=== PATIENT | male | born 1960 | race African-American/Black ===

== ENCOUNTER 2023-09-04 18:29 | Inpatient (IN) | payer MEDICARE, MEDICAID ==
[~2023-09-04] VITALS: Ht 167.6 cm; Wt 56.4 kg
[~2023-09-04 18:29] MED LIST: ASPI-1497 PO; ATOR10TA69 PO; LINA1TAB5 PO; LISI10TA26 PO; NEBI5TAB2 PO; RANI150T7 PO; prevacid
[2023-09-04 19:59] LABS: BASOPHILS % 0.8 % (0.0-2.0); EOSINOPHILS % 0.9 % (0.0-5.0); HEMATOCRIT. 39.8 % (42.0-52.0); HEMOGLOBIN. 13.2 g/dL (14.0-18.0); LYMPHOCYTES % 18.8 % (20.0-50.0); MEAN CORPUSCULAR HEMOGLOBIN 29.7 pg (28.0-32.0); MEAN CORPUSCULAR HGB CONC 33.1 g/dL (31.0-37.0); MEAN CORPUSCULAR VOLUME 89.7 fL (80.0-94.0); MEAN PLATELET VOLUME 8.9 fl (7.4-10.4); MONOCYTES % 10.2 % (2.0-8.0); NEUTROPHILS % 69.3 % (40.0-76.0); PLATELET 322 x1000/uL (130-400); RED BLOOD CELL COUNT 4.43 mill/uL (4.7-6.1); RED CELL DISTRIBUTION WIDTH 13.8 % (11.6-14.6); WHITE BLOOD COUNT 6.7 x1000/uL (4.5-11.0)
[2023-09-04 20:05] LABS: CHLORIDE 108 mEq/L (98-107); POTASSIUM 3.2 mEq/L (3.5-5.1); SODIUM 146 mEq/L (136-145)
[2023-09-04 20:06] LABS: CALCIUM 9.7 mg/dL (8.7-10.4); CARBON DIOXIDE 27 mEq/L (21-32)
[2023-09-04 20:10] LABS: INR 1.1; PARTIAL THROMBOPLASTIN TIME 24.5 sec (23.4-31.0); PROTHROMBIN TIME 11.7 sec (9.6-11.0)
[2023-09-04 20:11] LABS: CREATININE 0.9 mg/dL (0.6-1.3); GLUCOSE 106 mg/dL (70-105); UREA NITROGEN BLOOD 16 mg/dL (9-23)
[2023-09-04 20:13] LABS: ALANINE AMINOTRANSFERASE 11 IU/L (10-49); ALBUMIN 4.5 g/dL (3.2-4.8); ASPARTATE AMINOTRANSFERASE 22 IU/L (<34); BILIRUBIN TOTAL 0.6 mg/dL (0.1-1.0)
[2023-09-04 20:14] LABS: PROTEIN TOTAL 7.3 g/dL (6.0-8.3)
[2023-09-04 20:31] LABS: TROPONIN I HIGH SENSITIVITY 978 ng/L (3.0-53)
[2023-09-04] MEDS ORDERED: ASPIRIN 325MG EC TABLET PO ONE (21:15)
[2023-09-04] MEDS ORDERED: ACETAMINOPHEN 325MG TABLET PO PRN (21:45)
[2023-09-04] MEDS ORDERED: DEXT 5%/0.45% NACL 1000ML 1,000 ML IV SCH (21:45)
[2023-09-04] MEDS ORDERED: IPRATROPIUM/ALBUTEROL 0.5-3(2.5)MG/3ML NEB HHN PRN (21:45)
[2023-09-04] MEDS ORDERED: DOCUSATE SODIUM 100MG CAPSULE PO PRN (21:45)
[2023-09-04] MEDS: IOHEXOL-350 100 ML BOTTLE ONE (22:23)
[2023-09-04] MEDS ORDERED: POTASSIUM CHLORIDE 20MEQ TABLET SR PO NR (22:30)
[2023-09-04] MEDS ORDERED: DEXTROSE 50% WATER 50ML SYRINGE IV PRN (22:45)
[2023-09-04 23:30] VITALS: BP 174/85; PULSE 59; RESP 20; TEMP 99
[2023-09-05 00:34] LABS: TRIGLYCERIDE 80 mg/dL (0-150)
[2023-09-05 00:35] LABS: LDL CHOLESTEROL 122 mg/dL (5-100)
[2023-09-05 00:36] LABS: ALBUMIN 4.5 g/dL (3.2-4.8); CHOLESTEROL 171 mg/dL (<200); HDL CHOLESTEROL 37 mg/dL (>55); PHOSPHORUS 3.5 mg/dL (2.5-4.9)
[2023-09-05 00:37] LABS: CREATINE KINASE MB FRACTION 3.1 ng/mL (0.5-3.6)
[2023-09-05 00:41] LABS: T4 FREE 0.99 ng/dL (0.89-1.76); THYROID STIMULATING HORMONE 0.53 uIU/mL (0.55-4.78)
[2023-09-05 00:56] LABS: TROPONIN I HIGH SENSITIVITY 883 ng/L (3.0-53)
[2023-09-05] MEDS: KCL 20MEQ/100ML PREMIX 100 ML IV NR (01:01)
[2023-09-05] MEDS: ASPIRIN 300MG SUPP PR NR (01:02)
[2023-09-05] MEDS: DEXT 5%/LACTATED RINGERS 1,000 ML IV SCH (01:05)
[2023-09-05 05:32] LABS: HEMATOCRIT 40.5 % (42.0-52.0); HEMOGLOBIN 13.4 g/dL (14.0-18.0); MEAN CORPUSCULAR HEMOGLOBIN 29.8 pg (28.0-32.0); MEAN CORPUSCULAR HGB CONC 33.1 g/dL (31.0-37.0); MEAN CORPUSCULAR VOLUME 90.1 fL (80.0-94.0); PLATELET 299 x1000/uL (130-400); RED BLOOD CELL COUNT 4.49 mill/uL (4.7-6.1); RED CELL DISTRIBUTION WIDTH 14.1 % (11.6-14.6); WHITE BLOOD COUNT 6.7 x1000/uL (4.5-11.0)
[2023-09-05 05:57] LABS: CREATINE KINASE MB FRACTION 2.8 ng/mL (0.5-3.6)
[2023-09-05] MEDS: BLOOD SUGAR DIAGNOSTIC STRIP TEST SCH (07:13)
[2023-09-05] MEDS: INSULIN LISPRO 100 UNITS/ML SUBCUT SCH (07:15)
[2023-09-05] MEDS ORDERED: HYDRALAZINE HCL 25MG TABLET PO PRN (08:45)
[2023-09-05] MEDS: ASPIRIN 81MG TABLET PO SCH (10:52)
[2023-09-05] MEDS: CLOPIDOGREL 75MG TABLET PO SCH (10:52)
[2023-09-05 13:47] VITALS: BP 181/94; PULSE 49; RESP 18; TEMP 97.9
[2023-09-05 16:00] VITALS: BP 188/91; PULSE 48; RESP 18; TEMP 97.9
[2023-09-05] MEDS: HYDRALAZINE 20MG/ML VIAL IV PRN (16:11)
[2023-09-05 17:35] VITALS: BP 151/84; PULSE 64
[2023-09-05 19:56] LABS: CALCIUM 9.7 mg/dL (8.7-10.4); CARBON DIOXIDE 24 mEq/L (21-32)
[2023-09-05 20:01] LABS: CREATININE 0.8 mg/dL (0.6-1.3); GLUCOSE 139 mg/dL (70-105); UREA NITROGEN BLOOD 9 mg/dL (9-23)
[2023-09-05 20:25] VITALS: BP 130/69; PULSE 60; RESP 18; TEMP 97.5
[2023-09-05 20:43] LABS: CHLORIDE 112 mEq/L (98-107); SODIUM 145 mEq/L (136-145)
[2023-09-05 20:46] LABS: POTASSIUM 5.2 mEq/L (3.5-5.1)
[2023-09-05] MEDS: ATORVASTATIN CALCIUM 40MG TABLET PO SCH (21:00)
[2023-09-05] MEDS ORDERED: ATORVASTATIN CALCIUM 40MG TABLET PO SCH (21:00)
[2023-09-06 04:00] VITALS: BP 169/87; PULSE 48; RESP 18; TEMP 97.1
[2023-09-06 06:14] LABS: CHLORIDE 109 mEq/L (98-107); SODIUM 147 mEq/L (136-145)
[2023-09-06 06:15] LABS: CARBON DIOXIDE 28 mEq/L (21-32)
[2023-09-06 06:16] LABS: CALCIUM 9.3 mg/dL (8.7-10.4)
[2023-09-06 06:20] LABS: CREATININE 0.7 mg/dL (0.6-1.3); GLUCOSE 140 mg/dL (70-105); TRIGLYCERIDE 65 mg/dL (0-150); UREA NITROGEN BLOOD 10 mg/dL (9-23)
[2023-09-06 06:21] LABS: LDL CHOLESTEROL 103 mg/dL (5-100)
[2023-09-06 06:22] LABS: CHOLESTEROL 150 mg/dL (<200); HDL CHOLESTEROL 31 mg/dL (>55)
[2023-09-06 06:29] LABS: POTASSIUM 3.1 mEq/L (3.5-5.1)
[2023-09-06 08:00] VITALS: BP 130/86; PULSE 58; RESP 20; TEMP 98.4
[2023-09-06] MEDS: KCL 20MEQ/100ML PREMIX 100 ML IV SCH (08:27)
[2023-09-06 12:12] VITALS: BP 95/43; PULSE 55; RESP 18; TEMP 98
[2023-09-06 12:17] VITALS: BP 166/94; PULSE 55; RESP 18; TEMP 98
[2023-09-06 16:20] VITALS: BP 158/78; PULSE 59; RESP 20; TEMP 97.7
[2023-09-06 16:39] LABS: CLARITY URINE CLEAR (CLEAR); COLOR URINE DARK YELLOW (YELLOW); GLUCOSE URINE TRACE (NEGATIVE); KETONES URINE 2+ (NEGATIVE); LEUKOCYTE ESTERASE URINE NEGATIVE (NEGATIVE); NITRITE URINE NEGATIVE (NEGATIVE); OCCULT BLOOD URINE NEGATIVE (NEGATIVE); PH URINE 5.5 (4.5-8.0); PROTEIN URINE TRACE (NEGATIVE); SPECIFIC GRAVITY URINE 1.048 (1.005-1.030)
[2023-09-06 16:50] LABS: BACTERIA URINE NONE SEEN; RBC URINE 0-2 /hpf (0-2); SQUAMOUS EPITHELIAL CELL URINE RARE /lpf (RARE/1+); WBC URINE NONE SEEN /hpf (0-2)
[2023-09-06 16:52] LABS: *AMPHETAMINES SCREEN URINE NEGATIVE (NEGATIVE); *BARBITURATES SCREEN URINE NEGATIVE (NEGATIVE); *BENZODIAZEPINES SCREEN URINE NEGATIVE (NEGATIVE); *COCAINE SCREEN URINE NEGATIVE (NEGATIVE); CANNABINOID URINE SCREEN NEGATIVE (NEGATIVE); METHADONE URINE SCREEN NEGATIVE (NEGATIVE); OPIATES URINE SCREEN NEGATIVE (NEGATIVE); PHENCYCLIDINE URINE SCREEN NEGATIVE (NEGATIVE)
[2023-09-06 16:53] LABS: ECSTASY MDMA SCREEN URINE NEGATIVE (NEGATIVE)
[2023-09-06 17:50] LABS: CREATINE KINASE MB FRACTION 1.5 ng/mL (0.5-3.6)
[2023-09-06 20:00] VITALS: BP 172/104; PULSE 69; RESP 20; TEMP 97.6
[2023-09-06 23:04] LABS: CREATINE KINASE MB FRACTION 1.1 ng/mL (0.5-3.6)
[2023-09-07] VITALS: BP 160/79; PULSE 68; RESP 20; TEMP 97.7
[2023-09-07 04:00] VITALS: BP 158/88; PULSE 64; RESP 20; TEMP 97.6
[2023-09-07 07:31] LABS: CHLORIDE 107 mEq/L (98-107); POTASSIUM 3.7 mEq/L (3.5-5.1); SODIUM 143 mEq/L (136-145)
[2023-09-07 07:32] LABS: CALCIUM 9.6 mg/dL (8.7-10.4); CARBON DIOXIDE 26 mEq/L (21-32)
[2023-09-07 07:34] LABS: BASOPHILS % 0.4 % (0.0-2.0); EOSINOPHILS % 4.2 % (0.0-5.0); HEMATOCRIT. 40.9 % (42.0-52.0); HEMOGLOBIN. 13.3 g/dL (14.0-18.0); LYMPHOCYTES % 25.1 % (20.0-50.0); MEAN CORPUSCULAR HEMOGLOBIN 29.4 pg (28.0-32.0); MEAN CORPUSCULAR HGB CONC 32.6 g/dL (31.0-37.0); MEAN CORPUSCULAR VOLUME 90.3 fL (80.0-94.0); MEAN PLATELET VOLUME 9.6 fl (7.4-10.4); NEUTROPHILS % 60.3 % (40.0-76.0); PLATELET 299 x1000/uL (130-400); RED BLOOD CELL COUNT 4.53 mill/uL (4.7-6.1); RED CELL DISTRIBUTION WIDTH 13.9 % (11.6-14.6); WHITE BLOOD COUNT 5.7 x1000/uL (4.5-11.0)
[2023-09-07 07:37] LABS: CREATININE 0.7 mg/dL (0.6-1.3); GLUCOSE 128 mg/dL (70-105); UREA NITROGEN BLOOD 8 mg/dL (9-23)
[2023-09-07 07:39] LABS: CREATINE KINASE 169 IU/L (46-171)
[2023-09-07 07:58] LABS: TROPONIN I HIGH SENSITIVITY 852 ng/L (3.0-53)
[2023-09-07 08:00] VITALS: BP 157/82; PULSE 71; RESP 20; TEMP 98.2
[2023-09-07] MEDS: LISINOPRIL 10MG TABLET PO SCH (10:00)
[2023-09-07 12:00] VITALS: BP 152/82; PULSE 61; RESP 20; TEMP 97.6
[2023-09-07 16:00] VITALS: BP 150/78; PULSE 68; RESP 20; TEMP 97.8
[2023-09-07 20:00] VITALS: BP 182/93; PULSE 60; RESP 19; TEMP 97.9
[2023-09-08] VITALS (7 sets, daily range): BP systolic 135–184; BP diastolic 88–107; PULSE 78–96; RESP 18–20; TEMP 97.4–98.9
[2023-09-08 07:12] LABS: HEMATOCRIT 39.8 % (42.0-52.0); HEMOGLOBIN 12.8 g/dL (14.0-18.0); MEAN CORPUSCULAR HEMOGLOBIN 29.7 pg (28.0-32.0); MEAN CORPUSCULAR HGB CONC 32.2 g/dL (31.0-37.0); MEAN CORPUSCULAR VOLUME 92.3 fL (80.0-94.0); PLATELET 243 x1000/uL (130-400); RED BLOOD CELL COUNT 4.32 mill/uL (4.7-6.1); RED CELL DISTRIBUTION WIDTH 14.4 % (11.6-14.6); WHITE BLOOD COUNT 9.7 x1000/uL (4.5-11.0)
[2023-09-08 11:00] LABS: CALCIUM 9.9 mg/dL (8.7-10.4); CHLORIDE 106 mEq/L (98-107); POTASSIUM 3.3 mEq/L (3.5-5.1); SODIUM 143 mEq/L (136-145)
[2023-09-08 11:01] LABS: CARBON DIOXIDE 27 mEq/L (21-32)
[2023-09-08 11:06] LABS: CREATININE 0.6 mg/dL (0.6-1.3); GLUCOSE 182 mg/dL (70-105)
[2023-09-08 11:07] LABS: UREA NITROGEN BLOOD 7 mg/dL (9-23)
[2023-09-08] MEDS ORDERED: POTASSIUM CHLORIDE 20 MEQ in DEXT 5% WATER 90 ML IV ONE (12:15)
[2023-09-08] MEDS: KCL 20MEQ/100ML PREMIX 100 ML IV NR (14:33)
[2023-09-09] VITALS (7 sets, daily range): BP systolic 106–152; BP diastolic 53–97; PULSE 77–88; RESP 2–20; TEMP 97.9–99.2
[2023-09-09 07:43] LABS: HEMATOCRIT 39.1 % (42.0-52.0); HEMOGLOBIN 12.8 g/dL (14.0-18.0); MEAN CORPUSCULAR HEMOGLOBIN 29.3 pg (28.0-32.0); MEAN CORPUSCULAR HGB CONC 32.7 g/dL (31.0-37.0); MEAN CORPUSCULAR VOLUME 89.8 fL (80.0-94.0); PLATELET 251 x1000/uL (130-400); RED BLOOD CELL COUNT 4.35 mill/uL (4.7-6.1); RED CELL DISTRIBUTION WIDTH 14.1 % (11.6-14.6); WHITE BLOOD COUNT 10.7 x1000/uL (4.5-11.0)
[2023-09-09 07:52] LABS: CARBON DIOXIDE 31 mEq/L (21-32); CHLORIDE 107 mEq/L (98-107); POTASSIUM 3.3 mEq/L (3.5-5.1); SODIUM 142 mEq/L (136-145)
[2023-09-09 07:53] LABS: CALCIUM 9.7 mg/dL (8.7-10.4)
[2023-09-09 07:57] LABS: CREATININE 0.8 mg/dL (0.6-1.3); GLUCOSE 210 mg/dL (70-105)
[2023-09-09 07:58] LABS: UREA NITROGEN BLOOD 9 mg/dL (9-23)
[2023-09-09 08:00] LABS: PHOSPHORUS 2.5 mg/dL (2.5-4.9)
[2023-09-09] MEDS: KCL 20MEQ/100ML PREMIX 100 ML IV SCH (09:43)
[2023-09-09] MEDS ORDERED: POTASSIUM CHLORIDE 20MEQ TABLET SR PO NR (15:00)
[2023-09-09] MEDS: ONDANSETRON HCL 4MG/2ML INJ IV PRN (18:29)
[2023-09-10 04:00] VITALS: BP 155/80; PULSE 83; RESP 20; TEMP 97.8
[2023-09-10 07:52] LABS: CARBON DIOXIDE 29 mEq/L (21-32); CHLORIDE 105 mEq/L (98-107); POTASSIUM 3.5 mEq/L (3.5-5.1); SODIUM 140 mEq/L (136-145)
[2023-09-10 07:53] LABS: CALCIUM 9.4 mg/dL (8.7-10.4)
[2023-09-10 07:58] LABS: CREATININE 0.7 mg/dL (0.6-1.3); GLUCOSE 205 mg/dL (70-105); UREA NITROGEN BLOOD 11 mg/dL (9-23)
[2023-09-10 08:00] VITALS: BP 150/77; PULSE 73; RESP 18; TEMP 98.6
[2023-09-10] MEDS: ASPIRIN 81MG TABLET NG SCH (09:31)
[2023-09-10 12:00] VITALS: BP 141/82; PULSE 72; RESP 18; TEMP 97.8
[2023-09-10 16:00] VITALS: BP 150/89; PULSE 73; RESP 18; TEMP 98.8
[2023-09-10 20:00] VITALS: BP 160/94; PULSE 79; RESP 20; TEMP 97.7
[2023-09-10] MEDS: LORAZEPAM 2MG/ML INJ IV NR (23:30)
[2023-09-11] VITALS: BP 158/93; PULSE 75; RESP 20; TEMP 98
[2023-09-11 04:00] VITALS: BP 141/90; PULSE 89; RESP 20; TEMP 98
[2023-09-11 08:00] VITALS: BP 136/90; PULSE 75; RESP 18; TEMP 98.5
[2023-09-11] MEDS: LISINOPRIL 20MG TABLET PO SCH (09:17)
[2023-09-11] MEDS: SODIUM CHLORIDE 0.45% 1,000 ML IV SCH (10:13)
[2023-09-11 12:00] VITALS: BP 127/78; PULSE 80; RESP 18; TEMP 98.7
[2023-09-11 16:00] VITALS: BP 145/65; PULSE 59; RESP 18; TEMP 97.9
[2023-09-11 20:00] VITALS: BP 173/97; PULSE 72; RESP 16; TEMP 97.8
[2023-09-12] VITALS (7 sets, daily range): BP systolic 112–199; BP diastolic 67–120; PULSE 20–76; RESP 18–20; TEMP 97.8–98.4
[2023-09-12] MEDS: INSULIN LISPRO 100 UNITS/ML SUBCUT SCH (00:06)
[2023-09-12 09:22] LABS: CALCIUM 8.9 mg/dL (8.7-10.4); CARBON DIOXIDE 30 mEq/L (21-32); CHLORIDE 100 mEq/L (98-107); POTASSIUM 3.6 mEq/L (3.5-5.1); SODIUM 137 mEq/L (136-145)
[2023-09-12 09:26] LABS: CREATININE 0.6 mg/dL (0.6-1.3); GLUCOSE 256 mg/dL (70-105)
[2023-09-12 09:28] LABS: UREA NITROGEN BLOOD 10 mg/dL (9-23)
[2023-09-12 09:37] LABS: BASOPHILS % 0.6 % (0.0-2.0); DIFFERENTIAL COMMENT 0; HEMATOCRIT. 35.1 % (42.0-52.0); HEMOGLOBIN. 11.5 g/dL (14.0-18.0); LYMPHOCYTES % 22.2 % (20.0-50.0); MEAN CORPUSCULAR HEMOGLOBIN 29.5 pg (28.0-32.0); MEAN CORPUSCULAR HGB CONC 32.8 g/dL (31.0-37.0); MEAN CORPUSCULAR VOLUME 89.8 fL (80.0-94.0); MEAN PLATELET VOLUME 9.5 fl (7.4-10.4); MONOCYTES % 11.6 % (2.0-8.0); NEUTROPHILS % 61.6 % (40.0-76.0); PLATELET 261 x1000/uL (130-400); RED BLOOD CELL COUNT 3.91 mill/uL (4.7-6.1); RED CELL DISTRIBUTION WIDTH 13.7 % (11.6-14.6); WHITE BLOOD COUNT 5.3 x1000/uL (4.5-11.0)
[2023-09-12] MEDS: HYDRALAZINE HCL 10MG TABLET PO SCH (20:55)
[2023-09-13] VITALS: BP 130/78; PULSE 68; RESP 18; TEMP 97.8
[2023-09-13 04:00] VITALS: BP 153/80; PULSE 65; RESP 18; TEMP 97.2
[2023-09-13 08:00] VITALS: BP 135/91; PULSE 57; RESP 18; TEMP 98
[2023-09-13 08:05] LABS: CARBON DIOXIDE 29 mEq/L (21-32); CHLORIDE 101 mEq/L (98-107); POTASSIUM 3.6 mEq/L (3.5-5.1); SODIUM 137 mEq/L (136-145)
[2023-09-13 08:06] LABS: CALCIUM 9.3 mg/dL (8.7-10.4)
[2023-09-13 08:11] LABS: CREATININE 0.6 mg/dL (0.6-1.3); GLUCOSE 258 mg/dL (70-105); UREA NITROGEN BLOOD 9 mg/dL (9-23)
[2023-09-13 08:19] LABS: BASOPHILS % 0.8 % (0.0-2.0); EOSINOPHILS % 3.7 % (0.0-5.0); HEMATOCRIT. 35.7 % (42.0-52.0); HEMOGLOBIN. 11.9 g/dL (14.0-18.0); LYMPHOCYTES % 22.5 % (20.0-50.0); MEAN CORPUSCULAR HEMOGLOBIN 29.6 pg (28.0-32.0); MEAN CORPUSCULAR HGB CONC 33.3 g/dL (31.0-37.0); MEAN CORPUSCULAR VOLUME 88.9 fL (80.0-94.0); MEAN PLATELET VOLUME 9.4 fl (7.4-10.4); MONOCYTES % 10.7 % (2.0-8.0); NEUTROPHILS % 62.3 % (40.0-76.0); PLATELET 289 x1000/uL (130-400); RED BLOOD CELL COUNT 4.02 mill/uL (4.7-6.1); RED CELL DISTRIBUTION WIDTH 13.8 % (11.6-14.6); WHITE BLOOD COUNT 5.9 x1000/uL (4.5-11.0)
[2023-09-13] MEDS: LISINOPRIL 40MG TABLET PO SCH (09:11)
[2023-09-13 12:00] VITALS: BP 143/91; PULSE 58; RESP 18; TEMP 98.3
[2023-09-13 16:00] VITALS: BP 165/86; PULSE 66; RESP 17; TEMP 98
[2023-09-13 20:00] VITALS: BP 167/96; PULSE 70; RESP 20; TEMP 98
[2023-09-14] VITALS: BP 148/87; PULSE 67; RESP 20; TEMP 98
[2023-09-14 03:27] LABS: BASOPHILS % 0.8 % (0.0-2.0); EOSINOPHILS % 3.9 % (0.0-5.0); HEMATOCRIT. 35.4 % (42.0-52.0); HEMOGLOBIN. 11.7 g/dL (14.0-18.0); LYMPHOCYTES % 25.8 % (20.0-50.0); MEAN CORPUSCULAR HEMOGLOBIN 29.3 pg (28.0-32.0); MEAN CORPUSCULAR VOLUME 88.8 fL (80.0-94.0); MEAN PLATELET VOLUME 8.9 fl (7.4-10.4); MONOCYTES % 10.9 % (2.0-8.0); NEUTROPHILS % 58.6 % (40.0-76.0); PLATELET 303 x1000/uL (130-400); RED BLOOD CELL COUNT 3.99 mill/uL (4.7-6.1); RED CELL DISTRIBUTION WIDTH 13.7 % (11.6-14.6); WHITE BLOOD COUNT 6.3 x1000/uL (4.5-11.0)
[2023-09-14 03:36] LABS: CHLORIDE 104 mEq/L (98-107); POTASSIUM 3.4 mEq/L (3.5-5.1); SODIUM 139 mEq/L (136-145)
[2023-09-14 03:37] LABS: CARBON DIOXIDE 30 mEq/L (21-32)
[2023-09-14 03:42] LABS: CREATININE 0.6 mg/dL (0.6-1.3); UREA NITROGEN BLOOD 9 mg/dL (9-23)
[2023-09-14 03:44] LABS: ALANINE AMINOTRANSFERASE 9 IU/L (10-49); ALBUMIN 3.7 g/dL (3.2-4.8); ASPARTATE AMINOTRANSFERASE 15 IU/L (<34)
[2023-09-14 03:45] LABS: BILIRUBIN TOTAL 0.3 mg/dL (0.1-1.0); PROTEIN TOTAL 5.8 g/dL (6.0-8.3)
[2023-09-14 03:49] LABS: GLUCOSE 107 mg/dL (70-105)
[2023-09-14 04:00] VITALS: BP 122/65; PULSE 60; RESP 18; TEMP 97.5
[2023-09-14 04:05] LABS: PROTHROMBIN TIME 11.6 sec (9.6-11.0)
[2023-09-14 08:00] VITALS: BP 145/87; PULSE 69; RESP 20; TEMP 97.6
[2023-09-14] MEDS: KCL 20MEQ/100ML PREMIX 100 ML IV NR (09:13)
[2023-09-14] MEDS ORDERED: VANCOMYCIN 1000MG/250ML 250 ML IV SCH (11:00)
[2023-09-14 12:21] VITALS: BP 156/94; PULSE 68; RESP 20; TEMP 98.9
[2023-09-14] MEDS ORDERED: PROPOFOL 200MG/20ML VIAL IV ONE (12:57)
[2023-09-14] MEDS ORDERED: LIDOCAINE HCL 1% 10 MG/ML 10ML VIAL ONE (12:59)
[2023-09-14] MEDS: VANCOMYCIN 1G PREMIX 200 ML IV SCH (15:32)
[2023-09-14 16:00] VITALS: BP 156/88; PULSE 86; RESP 20; TEMP 99.7
[2023-09-14] MEDS: SUCRALFATE 1G TABLET GT SCH (17:36)
[2023-09-14 17:39] LABS: IRON 40 ug/dL (65-175)
[2023-09-14 17:42] LABS: TOTAL IRON BINDING CAPACITY 353 ug/dl (250-425)
[2023-09-14 17:46] LABS: FERRITIN 54 ng/mL (22-322); FOLIC ACID (FOLATE) SERUM > 20.00 ng/mL (>5.38)
[2023-09-14 17:47] LABS: VITAMIN B12 SERUM 411 pg/mL (211-911)
[2023-09-14 20:00] VITALS: BP 142/97; PULSE 84; RESP 20; TEMP 98.2
[2023-09-14] MEDS: KETOROLAC 15MG/ML VIAL IV PRN (21:08)
[2023-09-15] VITALS: BP 122/77; PULSE 73; RESP 18; TEMP 97.6
[2023-09-15 04:00] VITALS: BP 145/83; PULSE 75; RESP 20; TEMP 98.2
[2023-09-15 05:56] LABS: CHLORIDE 104 mEq/L (98-107); POTASSIUM 3.6 mEq/L (3.5-5.1); SODIUM 137 mEq/L (136-145)
[2023-09-15 05:57] LABS: CARBON DIOXIDE 27 mEq/L (21-32)
[2023-09-15 05:58] LABS: CALCIUM 8.7 mg/dL (8.7-10.4)
[2023-09-15 06:02] LABS: CREATININE 0.7 mg/dL (0.6-1.3); GLUCOSE 153 mg/dL (70-105); UREA NITROGEN BLOOD 10 mg/dL (9-23)
[2023-09-15 06:24] LABS: BASOPHILS % 0.6 % (0.0-2.0); EOSINOPHILS % 1.3 % (0.0-5.0); HEMATOCRIT. 33.6 % (42.0-52.0); HEMOGLOBIN. 11.1 g/dL (14.0-18.0); LYMPHOCYTES % 14.2 % (20.0-50.0); MEAN CORPUSCULAR HEMOGLOBIN 29.5 pg (28.0-32.0); MEAN CORPUSCULAR HGB CONC 33.1 g/dL (31.0-37.0); MEAN CORPUSCULAR VOLUME 89.2 fL (80.0-94.0); MONOCYTES % 10.3 % (2.0-8.0); NEUTROPHILS % 73.6 % (40.0-76.0); PLATELET 334 x1000/uL (130-400); RED BLOOD CELL COUNT 3.76 mill/uL (4.7-6.1); RED CELL DISTRIBUTION WIDTH 13.7 % (11.6-14.6); WHITE BLOOD COUNT 9.9 x1000/uL (4.5-11.0)
[2023-09-15 08:00] VITALS: BP 142/74; PULSE 80; RESP 18; TEMP 98.7
[2023-09-15] MEDS: METOCLOPRAMIDE HCL 10MG/2ML VIAL IV SCH (11:40)
[2023-09-15 12:23] VITALS: BP 145/74; PULSE 86; RESP 18; TEMP 96.6
[2023-09-15] MEDS: FERROUS SULFATE 300MG/5ML UDC PEG SCH (12:36)
[2023-09-15 16:00] VITALS: BP 128/82; PULSE 78; RESP 18; TEMP 97.8
[2023-09-15 20:00] VITALS: BP 146/92; PULSE 86; RESP 19; TEMP 99.5
[2023-09-15] MEDS: LANSOPRAZOLE 30MG DR CAPSULE GT SCH (20:55)
[2023-09-16 00:17] VITALS: BP 138/85; PULSE 77; RESP 18; TEMP 97.5
[2023-09-16 04:00] VITALS: BP 158/84; PULSE 84; RESP 19; TEMP 99.3
[2023-09-16 06:01] LABS: HEMATOCRIT 33.9 % (42.0-52.0); HEMOGLOBIN 11.1 g/dL (14.0-18.0); MEAN CORPUSCULAR HEMOGLOBIN 29.4 pg (28.0-32.0); MEAN CORPUSCULAR HGB CONC 32.7 g/dL (31.0-37.0); MEAN CORPUSCULAR VOLUME 89.9 fL (80.0-94.0); PLATELET 349 x1000/uL (130-400); RED BLOOD CELL COUNT 3.77 mill/uL (4.7-6.1); WHITE BLOOD COUNT 10.2 x1000/uL (4.5-11.0)
[2023-09-16 06:11] LABS: CHLORIDE 103 mEq/L (98-107); POTASSIUM 3.4 mEq/L (3.5-5.1); SODIUM 138 mEq/L (136-145)
[2023-09-16 06:12] LABS: CALCIUM 9.1 mg/dL (8.7-10.4); CARBON DIOXIDE 26 mEq/L (21-32)
[2023-09-16 06:17] LABS: CREATININE 0.7 mg/dL (0.6-1.3); GLUCOSE 117 mg/dL (70-105); UREA NITROGEN BLOOD 10 mg/dL (9-23)
[2023-09-16 06:19] LABS: ALANINE AMINOTRANSFERASE 7 IU/L (10-49); ALBUMIN 3.8 g/dL (3.2-4.8); ASPARTATE AMINOTRANSFERASE 14 IU/L (<34)
[2023-09-16 06:20] LABS: BILIRUBIN TOTAL 0.4 mg/dL (0.1-1.0)
[2023-09-16 08:00] VITALS: BP 160/90; PULSE 71; RESP 18; TEMP 98.6
[2023-09-16] MEDS ORDERED: LANS30CA55 GT (09:05)
[2023-09-16] MEDS ORDERED: SUCR1TAB30 GT (09:05)
[2023-09-16] MEDS ORDERED: FE300LUD PEG (09:05)
[2023-09-16] MEDS ORDERED: LISI40TA13 PO (09:05)
[2023-09-16] MEDS ORDERED: METO5VIA3 IV (09:05)
[2023-09-16] MEDS ORDERED: LIP40 PO (09:05)
[2023-09-16] MEDS ORDERED: ONDA4VIA22 IV (09:05)
[2023-09-16] MEDS ORDERED: CLOP-31 PO (09:05)
[2023-09-16] MEDS ORDERED: HYDR-2988 PO (09:05)
[2023-09-16] MEDS ORDERED: TOPUD PO (09:05)
[2023-09-16 12:00] VITALS: BP 139/83; PULSE 73; RESP 18; TEMP 98.1
[2023-09-16 16:00] VITALS: BP 156/85; PULSE 87; RESP 20; TEMP 98.8
[2023-09-16 20:00] VITALS: BP 156/90; PULSE 77; RESP 16; TEMP 98.7
[2023-09-16] MEDS: ACETAMINOPHEN 325MG TABLET PO PRN (23:17)
[2023-09-17 00:20] VITALS: BP 133/73; PULSE 81; RESP 16; TEMP 98.4
[2023-09-17 04:00] VITALS: BP 145/92; PULSE 73; RESP 16; TEMP 98.2
[2023-09-17 08:00] VITALS: BP 153/90; PULSE 79; RESP 18; TEMP 97.5
[2023-09-17 12:00] VITALS: BP 145/93; PULSE 78; RESP 18; TEMP 98.2
[2023-09-17 15:29] VITALS: BP 145/93; PULSE 78; TEMP 98.2; O2SAT 100
[2023-09-17 16:00] VITALS: BP 159/97; PULSE 74; RESP 20; TEMP 98
== END 2023-09-17 19:00 | DRG 64 ==
LOC: ER 18:29 → EDBEDREQTM 21:27 → EDBEDREQ 21:27 → 5WST 09-05 01:25 → 7WST 09-05 13:39
PROVIDERS: ADMIT Internal Medicine; ATTEND Internal Medicine
PROC: 0DB68ZX Excision of Stomach, Via Natural or Artificial Opening Endoscopic, Diagnostic (ICD-10-PCS; principal; 2023-09-14)
PROC: 0DB78ZX Excision of Stomach, Pylorus, Via Natural or Artificial Opening Endoscopic, Diagnostic (ICD-10-PCS; 2023-09-14)
PROC: 0DH63UZ Insertion of Feeding Device into Stomach, Percutaneous Approach (ICD-10-PCS; 2023-09-14)
DX: I63.9 Cerebral infarction, unspecified (principal); G92.8 Other toxic encephalopathy; I21.A1 Myocardial infarction type 2; E87.0 Hyperosmolality and hypernatremia; K22.10 Ulcer of esophagus without bleeding; R47.01 Aphasia; E78.5 Hyperlipidemia, unspecified; E87.6 Hypokalemia; R29.708 NIHSS score 8; I10 Essential (primary) hypertension; R13.10 Dysphagia, unspecified; D63.8 Anemia in other chronic diseases classified elsewhere; K29.70 Gastritis, unspecified, without bleeding; F17.210 Nicotine dependence, cigarettes, uncomplicated; R29.810 Facial weakness; R47.1 Dysarthria and anarthria; Z53.20 Procedure and treatment not carried out because of patient's decision for unspecified reasons; Z79.02 Long term (current) use of antithrombotics/antiplatelets; Z79.4 Long term (current) use of insulin; Z79.82 Long term (current) use of aspirin; Z79.899 Other long term (current) drug therapy; Z88.0 Allergy status to penicillin; Z93.1 Gastrostomy status
CPT/HCPCS: 36415; 70496; 70498; 70551; 71045; 76700; 80048; 80053; 80061; 80305; 81003; 82040; 82550; 82553; 82607; 82728; 82746; 82962; 83036; 83540; 83550; 83735; 83880; 84100; 84439; 84443; 84484; 85025; 85027; 85379; 86850; 86900; 88305; 92523; 92610; 93005; 93306; 97112; 97116; 97163; 97166; 97530; 97535; 99291; C1893; J0360; J1815; J1885; J2405; J2704; J2765; J3370; J3480; J3490; Q9967